=== PATIENT | male | born 1945 | race Caucasian/White ===

== ENCOUNTER → 2016-02-20 | Outpatient (CLI) | payer OTHER ==
[~2016-02-20] MED LIST: AGM875 PO
== END | disposition home or self-care (01) ==
LOC: C.PATHSPEC 11:19
PROVIDERS: ATTEND Dentist Endodontics
DX: L92.9 Granulomatous disorder of the skin and subcutaneous tissue, unspecified (principal)

== ENCOUNTER → 2017-01-13 | Outpatient (CLI) | payer OTHER ==
[~2017-01-13] MED LIST changes: +GADAVIST IV PRN
--- NOTE | 2017-01-13 08:12 | DIAGNOSTIC IMAGING REPORT ---
R LOWER EXTREMITY JOINT COM CLINICAL HISTORY: 71 years-old Male presenting with PLANTAR, right foot plantar plate injury, pain at the distal second metatarsal along both the dorsal and plantar surfaces. TECHNIQUE: Multisequence, multiplanar MR imaging of the right ankle was performed before and after the administration of intravenous contrast. IV contrast: 8.5 mL of Gadavist. COMPARISON: None. FINDINGS: Localizer images: Unremarkable. Partially visualized forefoot demonstrates bony edema of the head of the second metatarsal with fluid along the dorsal aspect at the level of the second metatarsophalangeal joint. Similar findings are noted to a lesser extent at the third and fourth metatarsophalangeal joints without associated bony edema of the metatarsal heads. Postcontrast imaging demonstrates enhancement and apparent synovial thickening of the second and third metatarsophalangeal joint capsules minimal infiltration and abnormal enhancement noted along the plantar aspect of the first metatarsophalangeal joint.. This is incompletely evaluated as the examination was tailored to the ankle. Within the ankle, no bony edema is evident. Articular cartilage intact. Anterior, posterior, and peroneal tendons intact. Anterior and posterior tibiofibular ligaments intact. Anterior and posterior talofibular ligaments intact. Calcaneofibular ligament intact. Deltoid ligament intact. Normal muscle bulk and signal intensity in both the flexor and extensor compartments. The Achilles tendon is normal in signal intensity and thickness. No significant infiltration of the fat pad. Plantar fascia normal in both the medial and lateral bands. No abnormal enhancement of the ankle on postcontrast imaging. IMPRESSION: 1. No MR abnormality of the right ankle. 2. Bony edema at the head of the second metatarsal. The evaluation was not tailored to examination of the forefoot. Abnormal fluid in the second and third metatarsophalangeal joints with synovial thickening and enhancement. Nonspecific superficial edema at the plantar aspect of the first metatarsophalangeal joint. These findings are nonspecific in the absence of more dedicated imaging and could be seen in the setting of injury or infection. Correlate clinically. If necessary, the patient can be brought back for dedicated imaging of the forefoot. Electronically signed by: Nilay Tijerina M.D. 01/13/2017 8:10 AM Dictated Date/Time: 01/13/2017 7:59 AM
== END | disposition home or self-care (01) ==
LOC: C.MRI 06:28
PROVIDERS: ATTEND Student in an Organized Health Care Education/Training Program
DX: S89.91XA Unspecified injury of right lower leg, initial encounter (principal); X58.XXXA Exposure to other specified factors, initial encounter; M77.41 Metatarsalgia, right foot